=== PATIENT | female | born 1945 | race Hispanic/Latino ===

== ENCOUNTER 2022-09-29 07:12 | Observation (INO) | payer OTHER ==
[2022-09-28 11:24] LABS: BASOPHILS # (AUTO) 0.03 K/uL (0.00-0.20); BASOPHILS % (AUTO) 0.5 % (0.0-5.0); EOSINOPHILS # (AUTO) 0.07 K/uL (0.00-0.70); EOSINOPHILS % (AUTO) 1.2 % (0.0-8.0); HEMATOCRIT 29.4 % (36-48); IMMATURE GRANULOCYTE ABSOLUTE 0.02 K/uL (0-1); LYMPHOCYTES # (AUTO) 1.2 K/uL (1.0-4.8); LYMPHOCYTES % (AUTO) 20.7 % (21.0-51.0); MONOCYTES # (AUTO) 0.5 K/uL (0.1-1.0); MONOCYTES % (AUTO) 8.5 % (3.0-13.0); NEUTROPHILS # (AUTO) 4.1 K/uL (1.8-7.7); NEUTROPHILS % (AUTO) 68.8 % (40.0-77.0); PLATELET COUNT (AUTO) 232 K/uL (130-400); RED BLOOD CELL COUNT(AUTO) 3.03 MIL/uL (4.00-5.50); RED CELL DISTRIBUTION WIDTH 13.7 % (11.0-15.5)
[2022-09-28 11:38] LABS: CREATININE 0.7 mg/dL (0.5-1.5)
[2022-09-28 13:14] VITALS: BP 156/65; PULSE 58; RESP 20
[2022-09-28 14:13] LABS: INR 0.93 (0.85-1.15); PROTHROMBIN TIME 10.8 SEC (9.6-11.6)
[~2022-09-29] VITALS: Ht 154.9 cm; Wt 65.5 kg
[2022-09-29] VITALS (29 sets, daily range): BP systolic 104–146; BP diastolic 42–80; PULSE 62–85; RESP 13–18; O2SAT 99
[~2022-09-29 07:12] MED LIST: ACET-2079 PO; ATOR40TA71 PO; DICL75TA5 PO; FENO145T26 PO; FERR-82 PO; FOLI1 PO; GABA-529 PO; HYDR200T75 PO; LORA10TA7 PO; METF-444 PO; OMEG-189 PO; SULF500T8 PO
[2022-09-29] MEDS ORDERED: 0.9%NACL 1000ML 1,000 ML IV ONE (07:26)
[2022-09-29] MEDS: CEFAZOLIN SODIUM 2 GM VIAL ONE ×2 (07:48→11:01)
[2022-09-29] MEDS ORDERED: [UNRECOGNIZED DRUG - MIXTURE] PO (08:09)
[2022-09-29] MEDS ORDERED: ONDANSETRON 4MG INJ ONE (10:39)
[2022-09-29] MEDS ORDERED: DEXAMETHASONE SOD PHOSPHATE 10MG/ML 1ML VIAL ONE (10:39)
[2022-09-29] MEDS ORDERED: LIDOCAINE PF 100MG/5ML (2%) SYRINGE 5ML ONE (10:39)
[2022-09-29] MEDS ORDERED: SUCCINYLCHOLINE 200MG/10ML SYR ONE (10:39)
[2022-09-29] MEDS ORDERED: GLYCOPYRROLATE 1 MG/5 ML SYRINGE ONE (10:40)
[2022-09-29] MEDS ORDERED: NEOSTIGMINE 5MG/5ML SYR IV ONE (10:40)
[2022-09-29] MEDS ORDERED: MIDAZOLAM HCL 1 MG/ML 2ML VIAL ONE (10:40)
[2022-09-29] MEDS ORDERED: PROPOFOL 10 MG/ML 20ML VIAL IV ONE (10:40)
[2022-09-29] MEDS ORDERED: ROCURONIUM 10MG/1ML SYR 10 MG/ML ML ONE (10:41)
[2022-09-29] MEDS ORDERED: FENTANYL CITRATE PF 50 MCG/1 ML 2ML VIAL ONE ×2 (10:42→12:07)
[2022-09-29] MEDS ORDERED: TRANEXAMIC ACID 1000MG/10ML ONE (10:48)
[2022-09-29] MEDS ORDERED: PHENYLEPHRINE HCL 10 MG/ML 1ML VIAL IV ONE (11:02)
[2022-09-29] MEDS ORDERED: HYDROCODONE/ACETAMINOPHEN 10/325 MG TAB PO PRN (11:30)
[2022-09-29] MEDS ORDERED: POTASSIUM CHLORIDE 10% ELIXIR 20 MEQ/15 ML UDCUP PO PRN (11:30)
[2022-09-29] MEDS ORDERED: POTASSIUM CHLORIDE 20MEQ/100ML 100 ML IV PRN (11:30)
[2022-09-29] MEDS ORDERED: ONDANSETRON 4MG INJ IVP PRN (11:30)
[2022-09-29] MEDS ORDERED: MORPHINE 4 MG SYG IVP PRN (11:30)
[2022-09-29] MEDS ORDERED: AMLODIPINE-BENAZEPRIL 5-10 MG PO SCH (12:00)
[2022-09-29] MEDS: INSULIN HUMULIN R 100 UNIT/ML 3ML SQ SCH ×3 (12:53→21:00)
[2022-09-29] MEDS: ACETAMINOPHEN 1,000 MG/100 ML VIAL IV SCH ×2 (13:07→18:38)
[2022-09-29] MEDS ORDERED: MEPERIDINE-PF 25 MG/ML SYG ONE (13:22)
[2022-09-29] MEDS: IBUPROFEN 800MG + NS 250ML IV SCH ×2 (14:25→22:04)
[2022-09-29] MEDS: CEFAZOLIN SODIUM 2 GM VIAL IVPB SCH (18:37)
[2022-09-29] MEDS ORDERED: SULFASALAZINE PO SCH (21:00)
[2022-09-29] MEDS ORDERED: OMEGA ACID ETHYL ESTERS PO SCH (21:00)
[2022-09-29] MEDS: FISH OIL 1000 MG/CAP PO SCH (22:02)
[2022-09-29] MEDS: GABAPENTIN 100 MG CAPSULE PO SCH (22:03)
[2022-09-29] MEDS: SULFASALAZINE 500 MG TAB.DR PO SCH (22:03)
[2022-09-29] MEDS: ASPIRIN 81 MG EC TAB PO SCH (22:03)
[2022-09-29] MEDS: FAMOTIDINE 20MG TAB PO SCH (22:03)
[2022-09-29] MEDS: 0.9%NACL 1000ML 1,000 ML IV SCH (22:07)
[2022-09-30] MEDS: ACETAMINOPHEN 1,000 MG/100 ML VIAL IV SCH (00:04)
[2022-09-30] MEDS: CEFAZOLIN SODIUM 2 GM VIAL IVPB SCH (02:21)
[2022-09-30 04:00] VITALS: BP 118/57; PULSE 63; RESP 18
[2022-09-30 05:26] LABS: HEMATOCRIT 21.5 % (36-48); MEAN CORPUSCULAR HGB CONC 33.5 g/dL (32.0-36.0); MEAN CORPUSCULAR VOLUME 95.6 fL (79-99); RED BLOOD CELL COUNT(AUTO) 2.25 MIL/uL (4.00-5.50); RED CELL DISTRIBUTION WIDTH 13.8 % (11.0-15.5); WHITE BLOOD COUNT (AUTO) 6.8 K/uL (4.8-10.8)
[2022-09-30 05:46] LABS: CREATININE 0.7 mg/dL (0.5-1.5)
[2022-09-30] MEDS: IBUPROFEN 800MG + NS 250ML IV SCH (06:40)
[2022-09-30] MEDS: KCL 20 MEQ ERTAB PO PRN ×3 (06:41→12:29)
[2022-09-30] MEDS: INSULIN HUMULIN R 100 UNIT/ML 3ML SQ SCH ×4 (06:44→19:59)
[2022-09-30] MEDS: 0.9%NACL 1000ML 1,000 ML IV SCH (07:30)
[2022-09-30 08:00] VITALS: BP 125/52; PULSE 62; RESP 18; O2SAT 99
[2022-09-30] MEDS ORDERED: BENA PO SCH (09:00)
[2022-09-30] MEDS ORDERED: [UNRECOGNIZED DRUG - OTHER] PO SCH (09:00)
[2022-09-30] MEDS: FAMOTIDINE 20MG TAB PO SCH ×2 (09:33→19:58)
[2022-09-30] MEDS: SULFASALAZINE 500 MG TAB.DR PO SCH ×2 (09:33→19:58)
[2022-09-30] MEDS: GABAPENTIN 100 MG CAPSULE PO SCH ×2 (09:33→19:58)
[2022-09-30] MEDS: FISH OIL 1000 MG/CAP PO SCH ×2 (09:33→19:58)
[2022-09-30] MEDS: FENOFIBRATE NANOCRYSTALLIZED 145 MG TAB PO SCH (09:33)
[2022-09-30] MEDS: FOLIC ACID 1 MG TABLET PO SCH (09:33)
[2022-09-30] MEDS: POLYETHYLENE GLYCOL 3350 17 GM POWD.PACK PO SCH (09:34)
[2022-09-30] MEDS: ASPIRIN 81 MG EC TAB PO SCH ×2 (09:34→19:58)
[2022-09-30] MEDS: HYDROCODONE/ACETAMINOPHEN 5/325 MG TAB PO PRN ×2 (09:34→12:29)
[2022-09-30] MEDS: METFORMIN HCL 500 MG TABLET PO SCH (09:34)
[2022-09-30] MEDS: HYDROXYCHLOROQUINE SULFATE 200 MG TAB PO SCH (09:37)
[2022-09-30 12:00] VITALS: BP 124/48; PULSE 58; RESP 18
[2022-09-30] MEDS ORDERED: MAGNESIUM 2GM PREMIX 50ML 50 ML IV SCH (13:30)
[2022-09-30] MEDS: AMLODIPINE-BENAZEPRIL 5-10 MG PO SCH (14:54)
[2022-09-30 16:00] VITALS: BP 130/53; PULSE 69; RESP 18
[2022-09-30 20:00] VITALS: BP 141/65; PULSE 74; RESP 18; O2SAT 96
[2022-09-30] MEDS ORDERED: IRON SUCROSE COMPLEX 300 MG in 0.9% NACL 250ML 250 ML IV ONE (21:00)
[2022-09-30 23:28] VITALS: BP 145/64; PULSE 75; RESP 18
[2022-10-01] VITALS (8 sets, daily range): BP systolic 141–165; BP diastolic 65–78; PULSE 79–98; RESP 18–21; O2SAT 97
[2022-10-01] MEDS: INSULIN HUMULIN R 100 UNIT/ML 3ML SQ SCH ×4 (05:35→21:00)
[2022-10-01 08:13] LABS: BASOPHILS # (AUTO) 0.02 K/uL (0.00-0.20); BASOPHILS % (AUTO) 0.3 % (0.0-5.0); EOSINOPHILS # (AUTO) 0.03 K/uL (0.00-0.70); EOSINOPHILS % (AUTO) 0.4 % (0.0-8.0); HEMATOCRIT 24.7 % (36-48); IMMATURE GRANULOCYTE ABSOLUTE 0.03 K/uL (0-1); LYMPHOCYTES % (AUTO) 13.5 % (21.0-51.0); MEAN CORPUSCULAR HEMOGLOBIN 31.8 pg (27.0-33.0); MEAN CORPUSCULAR HGB CONC 32.8 g/dL (32.0-36.0); MEAN CORPUSCULAR VOLUME 96.9 fL (79-99); MONOCYTES # (AUTO) 0.7 K/uL (0.1-1.0); MONOCYTES % (AUTO) 9.7 % (3.0-13.0); NEUTROPHILS # (AUTO) 5.8 K/uL (1.8-7.7); NEUTROPHILS % (AUTO) 75.7 % (40.0-77.0); PLATELET COUNT (AUTO) 174 K/uL (130-400); RED BLOOD CELL COUNT(AUTO) 2.55 MIL/uL (4.00-5.50); RED CELL DISTRIBUTION WIDTH 13.7 % (11.0-15.5); WHITE BLOOD COUNT (AUTO) 7.6 K/uL (4.8-10.8)
[2022-10-01] MEDS: POLYETHYLENE GLYCOL 3350 17 GM POWD.PACK PO SCH (09:28)
[2022-10-01] MEDS: SULFASALAZINE 500 MG TAB.DR PO SCH ×2 (09:29→22:18)
[2022-10-01] MEDS: FAMOTIDINE 20MG TAB PO SCH ×2 (09:29→22:18)
[2022-10-01] MEDS: FISH OIL 1000 MG/CAP PO SCH ×2 (09:29→22:18)
[2022-10-01] MEDS: FENOFIBRATE NANOCRYSTALLIZED 145 MG TAB PO SCH (09:30)
[2022-10-01] MEDS: ASPIRIN 81 MG EC TAB PO SCH ×2 (09:30→22:18)
[2022-10-01] MEDS: GABAPENTIN 100 MG CAPSULE PO SCH ×2 (09:30→22:18)
[2022-10-01] MEDS: FOLIC ACID 1 MG TABLET PO SCH (09:30)
[2022-10-01] MEDS: METFORMIN HCL 500 MG TABLET PO SCH (09:30)
[2022-10-01] MEDS: AMLODIPINE-BENAZEPRIL 5-10 MG PO SCH (09:31)
[2022-10-01] MEDS: HYDROXYCHLOROQUINE SULFATE 200 MG TAB PO SCH (09:31)
[2022-10-02 04:12] VITALS: BP 145/78; PULSE 88; RESP 18
[2022-10-02] MEDS: INSULIN HUMULIN R 100 UNIT/ML 3ML SQ SCH ×3 (06:41→16:30)
[2022-10-02 08:00] VITALS: BP 153/70; PULSE 78; RESP 18; O2SAT 98
[2022-10-02] MEDS: HYDROXYCHLOROQUINE SULFATE 200 MG TAB PO SCH (08:56)
[2022-10-02] MEDS: GABAPENTIN 100 MG CAPSULE PO SCH (08:56)
[2022-10-02] MEDS: FISH OIL 1000 MG/CAP PO SCH (08:56)
[2022-10-02] MEDS: FENOFIBRATE NANOCRYSTALLIZED 145 MG TAB PO SCH (08:56)
[2022-10-02] MEDS: FOLIC ACID 1 MG TABLET PO SCH (08:56)
[2022-10-02] MEDS: SULFASALAZINE 500 MG TAB.DR PO SCH (08:56)
[2022-10-02] MEDS: FAMOTIDINE 20MG TAB PO SCH (08:57)
[2022-10-02] MEDS: POLYETHYLENE GLYCOL 3350 17 GM POWD.PACK PO SCH (08:57)
[2022-10-02] MEDS: ASPIRIN 81 MG EC TAB PO SCH (08:57)
[2022-10-02] MEDS: METFORMIN HCL 500 MG TABLET PO SCH (08:57)
[2022-10-02] MEDS: AMLODIPINE-BENAZEPRIL 5-10 MG PO SCH (08:57)
[2022-10-02] MEDS ORDERED: BISACODYL 10 MG SUPP.RECT RC PRN (11:30)
[2022-10-02 12:00] VITALS: BP 147/69; PULSE 78; RESP 20
[2022-10-02 16:00] VITALS: BP 145/70; PULSE 81; RESP 20
[2022-10-02] MEDS: HYDROCODONE/ACETAMINOPHEN 5/325 MG TAB PO PRN (17:35)
== END 2022-10-02 20:20 ==
LOC: DAH 07:12 → DAHIP 07:13 → 4DH 15:50
PROVIDERS: ADMIT Orthopaedic Surgery; ATTEND Orthopaedic Surgery
DX: M17.11 Unilateral primary osteoarthritis, right knee (principal); Z20.822 Contact with and (suspected) exposure to COVID-19; E87.6 Hypokalemia; D62 Acute posthemorrhagic anemia; I10 Essential (primary) hypertension; E11.9 Type 2 diabetes mellitus without complications; M06.9 Rheumatoid arthritis, unspecified; Z79.84 Long term (current) use of oral hypoglycemic drugs; Z79.899 Other long term (current) drug therapy; Z98.890 Other specified postprocedural states; Z79.4 Long term (current) use of insulin; Z85.3 Personal history of malignant neoplasm of breast
CPT/HCPCS: 80048 ×2; 85025 ×2; 85610; 85730; 87426; 36415 ×4; 87641; 27447; 96365; 96366 ×2; 96367 ×2; 96368; 64447; 86850; 86900; 86901; 82948 ×15; 97161; 96375 ×2; 83735; 84132; 85027; 97039 ×4; 97116 ×6; 97530 ×2; A6260; C1713; C1776 ×3; G0378 ×75; A4663; J7030 ×2; J3010 ×2; J3490 ×2; J0330; J1100; J2710; J2001; J2250; J2704; J2405 ×2; J2175; J2371; J1741 ×3; J0690 ×3; A6223; G0168; A4649; A6212; A4930; A5120 ×2; A4215; A4223; A4222; A4221; A4600; J3475; J3480; J1756; J7050